=== PATIENT | female | born 1985 | race Asian ===

== ENCOUNTER 2019-03-25 06:10 | Day surgery (SDC) | payer OTHER ==
[~2019-03-25 06:10] MED LIST: CEFAZOLIN 2 GM/50 ML (PMX) 50 ML IVPB
[2019-03-25 07:36] LABS: ADD MAN DIFF? NO
[2019-03-25 07:44] LABS: BASOPHIL # 0.1 10^3/ul (0.0-0.1); BASOPHILS % 1.4 % (0.0-2.0); EOSINOPHILS # 0.1 10^3/ul (0.0-0.5); EOSINOPHILS % 1.7 % (0.0-7.0); HEMATOCRIT 41.6 % (37.0-47.0); HEMOGLOBIN 13.9 g/dl (12.0-16.0); LYMPHOCYTES # 2.3 10^3/ul (0.8-2.9); LYMPHOCYTES % 43.6 % (15.0-51.0); MEAN CORPUSCULAR HEMOGLOBIN 28.4 pg (29.0-33.0); MEAN CORPUSCULAR HGB CONC 33.4 g/dl (32.0-37.0); MEAN CORPUSCULAR VOLUME 85.1 fl (82.0-101.0); MEAN PLATELET VOLUME 10.8 fl (7.4-10.4); MONOCYTE # 0.4 10^3/ul (0.3-0.9); MONOCYTES % 8.5 % (0.0-11.0); NEUTROPHIL # 2.3 10^3/ul (1.6-7.5); NEUTROPHILS % 44.4 % (39.0-77.0); PLATELET COUNT 208 10^3/UL (140-415); RED BLOOD COUNT 4.89 10^6/ul (4.20-5.40); RED CELL DISTRIBUTION WIDTH 13.2 % (11.5-14.5)
[2019-03-25 07:44] LABS: WHITE BLOOD COUNT 5.2 10^3/ul (4.8-10.8)
[2019-03-25 07:46] LABS: POSITIVE DIFF @See below
[2019-03-25] MEDS: SOD CHLORIDE 0.9% 1,000 ML IV (07:46)
[2019-03-25 07:59] LABS: ALANINE AMINOTRANSFERASE 18 IU/L (13-69); ALBUMIN 4.8 g/dl (3.3-4.9); ALBUMIN/GLOBULIN RATIO 1.17; ALKALINE PHOSPHATASE 50 IU/L (42-121); ANION GAP 11 (5-13); ASPARTATE AMINO TRANSFERASE 35 IU/L (15-46); BILIRUBIN,INDIRECT 0.8 mg/dl (0-1.1); BILIRUBIN,TOTAL 0.8 mg/dl (0.2-1.3); BLOOD UREA NITROGEN 12 mg/dl (7-20); CALCIUM 9.2 mg/dl (8.4-10.2); CARBON DIOXIDE 26 mmol/L (21-31); CHLORIDE 104 mmol/L (97-110); CREATININE 0.74 mg/dl (0.44-1.00); Estimated GFR > 60 mL/min (>60); GLUCOSE 80 mg/dl (70-220); POTASSIUM 4.1 mmol/L (3.5-5.1); SODIUM 141 mmol/L (135-144); TOTAL PROTEIN 8.9 g/dl (6.1-8.1)
[2019-03-25 08:18] LABS: INR 0.95; PROTIME 12.8 Sec (11.9-14.9)
[2019-03-25] MEDS ORDERED: BUPIVACAINE 0.25% (MPF) 30 ML INJ (08:19)
[2019-03-25 08:37] LABS: PARTIAL THROMBOPLASTIN TIME 35.1 Sec (23.0-35.0)
[2019-03-25] MEDS ORDERED: LIDOCAINE 2% (SDV) 5 ML INJ (08:49)
[2019-03-25] MEDS ORDERED: PROPOFOL 20 ML (08:49)
[2019-03-25] MEDS ORDERED: ONDANSETRON 4 MG INJ (08:50)
[2019-03-25] MEDS ORDERED: MIDAZOLAM 1 MG/ML 2 ML INJ (08:50)
[2019-03-25] MEDS ORDERED: hydrALAzine 20 MG INJ IV (09:00)
[2019-03-25] MEDS ORDERED: HYDROmorphONE 1 MG/5 ML IV SYRINGE IV ×3 (09:00)
[2019-03-25] MEDS ORDERED: LABETALOL HCL 20MG INJ IV (09:00)
[2019-03-25] MEDS ORDERED: TRIMETHOBENZAMIDE 100 MG/ML VIAL IM (09:00)
[2019-03-25] MEDS ORDERED: FENTAnyl 50 MCG/ML VIAL IV ×3 (09:00)
[2019-03-25] MEDS ORDERED: DIPHENHYDRAMINE 50 MG INJ IV (09:00)
[2019-03-25] MEDS ORDERED: EPHEDrine 25 MG/5 ML SYG IV (09:00)
[2019-03-25] MEDS ORDERED: MIDAZOLAM 1 MG/ML 2 ML INJ IV (09:00)
[2019-03-25] MEDS ORDERED: IPRATROPIUM (NEB) 0.5 MG/2.5 ML AMP HHN (09:00)
[2019-03-25] MEDS ORDERED: MEPERIDINE 25 MG INJ IV (09:00)
[2019-03-25] MEDS ORDERED: OXYCODONE/ACETAMINOPHEN (5/325) TAB PO ×2 (09:00)
[2019-03-25] MEDS ORDERED: ALBUTEROL 0.083% (NEB) 2.5 MG/3 ML AMP HHN (09:00)
[2019-03-25] MEDS: BUPIVACAINE 0.5% (SDV) 30 ML INJ (09:03)
[2019-03-25] MEDS: LIDOCAINE 2% (MDV) 20 ML INJ (09:03)
[2019-03-25 09:22] LABS: ANISOCYTOSIS 1+ (0-0); BAND NEUTROPHILS #M 0.1 10^3/ul (0.0-0.6); BAND NEUTROPHILS % (M) 3 % (0-4); BASOPHILS % (M) 1 % (0-2); EOSINOPHILS % (M) 1 % (0-7); GIANT THROMBO% (M) 1 % (0-0); LYMPHOCYTES #M 1.9 10^3/ul (0.8-2.9); LYMPHOCYTES % (M) 37 % (15-51); MONOCYTE #M 0.4 10^3/ul (0.3-0.9); MONOCYTES % (M) 9 % (0-11); PLASMAC%(M) 1 % (0); PLATELET ESTIMATE NORMAL; POIKILOCYTOSIS 1+ (0-0); REACTIVE LYMPHOCYTES #M 0.1 10^3/ul (0.0-0.0); REACTIVE LYMPHOCYTES% (M) 2 % (0-0); SEG NEUT #M 2.4 10^3/ul (1.6-7.5); SEGMENTED NEUTROPHILS (M) % 46 % (39-77); SMUDGE%M 6 % (0-0)
[2019-03-25] MEDS ORDERED: HYDROCODONE/APAP (5/325) TAB PO (09:30)
[2019-03-25] MEDS: ONDANSETRON 4 MG INJ IV (10:20)
== END 2019-03-25 11:16 | disposition home or self-care (01) ==
LOC: SDS 06:10
DX: L73.8 Other specified follicular disorders (principal)
CPT/HCPCS: 14040; 80053; 84703; 85025; 85610; 85730; 88307